=== PATIENT | female | born 1975 | race Caucasian/White ===

== ENCOUNTER 2021-02-23 10:53 | Emergency (ER) | payer SELFPAY ==
[~2021-02-23] VITALS: Ht 149.9 cm; Wt 68.5 kg
[2021-02-23 11:05] VITALS: BP 134/67
--- NOTE | 2021-02-23 11:10 | NUR ---
PT TO AWAIT IN LOBBY
--- NOTE | 2021-02-23 11:28 | NUR ---
ROCÍO GILMORE EXAMINING PT
[2021-02-23] MEDS ORDERED: KETOROLAC 30 MG/ML VIAL IM ONE (11:35)
[2021-02-23] MEDS ORDERED: NAPR-54 PO (12:16)
[2021-02-23] MEDS ORDERED: CYCL-711 PO (12:16)
[2021-02-23 12:31] VITALS: BP 134/67
--- NOTE | 2021-02-23 12:31 | NUR ---
Patient discharged with v/s stable. Written and verbal after care instructions given and explained. Patient alert, oriented and verbalized understanding of instructions. Ambulatory with steady gait. All questions addressed prior to discharge. ID band removed. Patient advised to follow up with PMD. Rx of FLEXERIL AND NAPROSYN given. Patient educated on indication of medication including possible reaction and side effects. Opportunity to ask questions provided and answered.
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
== END 2021-02-23 12:31 | disposition home or self-care (01) ==
LOC: MED 10:53
DX: S13.4XXA Sprain of ligaments of cervical spine, initial encounter (principal); Z79.899 Other long term (current) drug therapy; Z98.890 Other specified postprocedural states; V89.2XXA Person injured in unspecified motor-vehicle accident, traffic, initial encounter; Y93.89 Activity, other specified; Y92.89 Other specified places as the place of occurrence of the external cause; Y99.8 Other external cause status
CPT/HCPCS: 72050; 99283; J1885

== ENCOUNTER 2021-04-15 14:00 | Emergency (ER) | payer SELFPAY ==
[~2021-04-15 14:00] MED LIST: CYCL-711 PO; NAPR-54 PO
--- NOTE | 2021-04-15 15:30 | NUR ---
no answer in lobby or outside at this time
--- NOTE | 2021-04-15 15:40 | NUR ---
no answer in lobby or outside at this time
--- NOTE | 2021-04-15 15:43 | NUR ---
lwbs, no answer in lobby or outside at this time
== END 2021-04-15 15:46 | disposition left against medical advice (07) ==
LOC: MED 14:00
DX: M54.9 Dorsalgia, unspecified (principal); Z53.21 Procedure and treatment not carried out due to patient leaving prior to being seen by health care provider

== ENCOUNTER 2021-06-03 16:09 | Emergency (ER) | payer OTHER, SELFPAY ==
[~2021-06-03] VITALS: Ht 154.9 cm; Wt 68.9 kg
[~2021-06-03 16:09] MED LIST changes: +ACET-1182 PO; -CYCL-711 PO; +HYDR-5080 PO; -NAPR-54 PO
[2021-06-03 16:18] VITALS: BP 119/68
--- NOTE | 2021-06-03 16:25 | NUR ---
45Y/O F/O F AMBULATED TO BED 1, ABD AND RIGHT FLANK PAIN X 1 WEEK. DENIES DYSURIA. NKDA PMH: APPENDECTOMY 05/13/21, ARTHRITIS, HLD, C SECTION
[2021-06-03] MEDS ORDERED: HYDROcodone/APAP 5/325 MG 1 TAB TAB PO ONE (17:10)
[2021-06-03 17:23] LABS: BASOPHILS % (AUTO) 0.4 % (0.0-2.0); EOSINOPHILS # (AUTO) 0.3 K/uL (0-0.4); EOSINOPHILS % (AUTO) 3.7 % (0.0-4.0); HEMATOCRIT 38.2 % (36-48); LYMPHOCYTES # (AUTO) 2.5 K/uL (2.5-16.5); LYMPHOCYTES % (AUTO) 34.5 % (20.5-51.1); MEAN CORPUSCULAR HEMOGLOBIN 29 pg (27-31); MEAN CORPUSCULAR HGB CONC 34 g/dL (33-37); MEAN CORPUSCULAR VOLUME 84.8 fL (80-94); MONOCYTES # (AUTO) 0.7 K/uL (0.8-1.0); MONOCYTES % (AUTO) 8.8 % (1.7-9.3); NEUTROPHILS # (AUTO) 3.9 K/uL (1.8-7.7); NEUTROPHILS % (AUTO) 52.6 % (42.2-75.2); PLATELET COUNT (AUTO) 364 K/uL (140-450); RED BLOOD CELL COUNT(AUTO) 4.51 MIL/uL (4.20-5.40); RED CELL DISTRIBUTION WIDTH 12.7 % (11.6-13.7); WHITE BLOOD COUNT (AUTO) 7.4 K/uL (4.8-10.8)
[2021-06-03 17:44] LABS: ALBUMIN 3.1 g/dL (3.4-5.0); ANION GAP 13.9 (8-16); CARBON DIOXIDE 22.9 mmol/L (21-32); CREATININE 0.5 mg/dL (0.6-1.3); POTASSIUM 3.8 mmol/L (3.5-5.1); TOTAL BILIRUBIN 0.3 mg/dL (0.0-1.0)
--- NOTE | 2021-06-03 18:19 | NUR ---
PT TAKEN TO CT WITH HEAD MILLER
[2021-06-03] MEDS ORDERED: IBUP-2213 PO (19:17)
[2021-06-03] MEDS ORDERED: DOCU-299 PO (19:19)
--- NOTE | 2021-06-03 19:25 | NUR ---
Pt report given to [facility]. Transfer of care at this time.
[2021-06-03 20:06] VITALS: BP 145/79
--- NOTE | 2021-06-03 20:06 | NUR ---
PATIENT CLEARED FOR DISHCARGE AT THISTIME. ADVISED TO FOLLOW UP WITH PCP AND RETURN IF CODNITON WORSENS. NO OTHER COMPAINTS OR CONCERNS AT THIS TIME FOLLOWING DISHCARGE TEACHING.
== END 2021-06-03 20:06 | disposition home or self-care (01) ==
LOC: MED 16:09
DX: G89.18 Other acute postprocedural pain (principal); K42.9 Umbilical hernia without obstruction or gangrene; Z79.899 Other long term (current) drug therapy
CPT/HCPCS: 36415; 74177; 80053; 81002; 81025; 83690; 85025; 99285; Q9967

== ENCOUNTER 2022-04-10 15:54 | Emergency (ER) | payer OTHER ==
[~2022-04-10] VITALS: Ht 154.9 cm; Wt 65.8 kg
[~2022-04-10 15:54] MED LIST changes: +DOCU-299 PO; +IBUP-2213 PO
[2022-04-10 16:03] VITALS: BP 117/77
--- NOTE | 2022-04-10 16:31 | NUR ---
46/F WALKED IN C/O LEFT SIDED CHEST PRESSURE X2 MONTHS, NONRADIATING ACCOMPANIED BY NAUSEA. DENIES DIZZINESS. AAO4, AMBULATORY, VITALS STABLE. PMH: DENIES
--- NOTE | 2022-04-10 16:32 | NUR ---
EKG DONE AT TRIAGE
[2022-04-10 16:38] LABS: BASOPHILS % (AUTO) 0.3 % (0.0-2.0); EOSINOPHILS # (AUTO) 0.2 K/uL (0-0.4); EOSINOPHILS % (AUTO) 2.6 % (0.0-4.0); HEMATOCRIT 40.7 % (36-48); HEMOGLOBIN 13.8 g/dL (12.0-16.0); LYMPHOCYTES # (AUTO) 2.1 K/uL (2.5-16.5); LYMPHOCYTES % (AUTO) 31.4 % (20.5-51.1); MEAN CORPUSCULAR HEMOGLOBIN 29 pg (27-31); MEAN CORPUSCULAR HGB CONC 34 g/dL (33-37); MEAN CORPUSCULAR VOLUME 84.7 fL (80-94); MONOCYTES # (AUTO) 0.3 K/uL (0.8-1.0); MONOCYTES % (AUTO) 4.8 % (1.7-9.3); NEUTROPHILS % (AUTO) 60.9 % (42.2-75.2); PLATELET COUNT (AUTO) 368 K/uL (140-450); RED BLOOD CELL COUNT(AUTO) 4.81 MIL/uL (4.20-5.40); RED CELL DISTRIBUTION WIDTH 13.1 % (11.6-13.7); WHITE BLOOD COUNT (AUTO) 6.6 K/uL (4.8-10.8)
[2022-04-10 16:59] LABS: ALBUMIN 3.7 g/dL (3.4-5.0); ANION GAP 12.3 (8-16); ASPARTATE AMINOTRANSFERASE 14 U/L (15-37); CARBON DIOXIDE 27.4 mmol/L (21-32); CHLORIDE 104 mmol/L (98-107); CREATININE 0.6 mg/dL (0.6-1.3); GFR ARICAN-AMERICAN 137 mL/min (>90); GLUCOSE 109 mg/dL (74-106); POTASSIUM 3.7 mmol/L (3.5-5.1); SODIUM SERUM 140 mmol/L (136-145); TOTAL BILIRUBIN 0.8 mg/dL (0.0-1.0); UREA NITROGEN, BLOOD 11 mg/dL (7-18)
[2022-04-10] MEDS ORDERED: FAMOTIDINE 20 MG TAB PO ONE (17:20)
[2022-04-10] MEDS ORDERED: ONDANSETRON 4 MG ODT PO ONE (17:20)
[2022-04-10] MEDS ORDERED: ALUMINUM HYD/MAG/SIMETHICONE 30 ML UDC PO ONE (17:20)
[2022-04-10] MEDS ORDERED: SUCR1TAB6 PO (17:51)
[2022-04-10] MEDS ORDERED: OMEP40EC23 PO (17:51)
--- NOTE | 2022-04-10 18:07 | NUR ---
Patient discharged with v/s stable. Written and verbal after care instructions given and explained. Patient alert, oriented and verbalized understanding of instructions. Ambulatory with steady gait. All questions addressed prior to discharge. ID band removed. Patient advised to follow up with PMD. Rx of PRILOSEC given. Patient educated on indication of medication including possible reaction and side effects. Opportunity to ask questions provided and answered.
== END 2022-04-10 18:07 | disposition home or self-care (01) ==
LOC: MED 15:54
DX: K20.90 Esophagitis, unspecified without bleeding (principal); R07.9 Chest pain, unspecified; K44.9 Diaphragmatic hernia without obstruction or gangrene; R11.2 Nausea with vomiting, unspecified; Z79.899 Other long term (current) drug therapy; Z98.890 Other specified postprocedural states
CPT/HCPCS: 36415; 71045; 80053; 84484; 85025; 93005; 99285; Q0162

== ENCOUNTER 2022-11-24 13:20 | Emergency (ER) | payer OTHER ==
[~2022-11-24] VITALS: Ht 154.9 cm; Wt 55.3 kg
[~2022-11-24 13:20] MED LIST changes: +OMEP40EC23 PO; +SUCR1TAB6 PO
[2022-11-24 13:35] VITALS: BP 111/81; PULSE 68; RESP 20; TEMP 98; O2SAT 99
[2022-11-24 14:28] VITALS: O2SAT 99
[2022-11-24 14:37] LABS: BASOPHILS % (AUTO) 0.3 % (0.0-2.0); EOSINOPHILS # (AUTO) 0.2 K/uL (0-0.4); EOSINOPHILS % (AUTO) 3.9 % (0.0-4.0); HEMOGLOBIN 13.5 g/dL (12.0-16.0); LYMPHOCYTES # (AUTO) 2.9 K/uL (2.5-16.5); LYMPHOCYTES % (AUTO) 47.1 % (20.5-51.1); MEAN CORPUSCULAR HEMOGLOBIN 29 pg (27-31); MEAN CORPUSCULAR HGB CONC 34 g/dL (33-37); MEAN CORPUSCULAR VOLUME 86.7 fL (80-94); MONOCYTES # (AUTO) 0.5 K/uL (0.8-1.0); MONOCYTES % (AUTO) 7.8 % (1.7-9.3); NEUTROPHILS # (AUTO) 2.5 K/uL (1.8-7.7); NEUTROPHILS % (AUTO) 40.9 % (42.2-75.2); PLATELET COUNT (AUTO) 310 K/uL (140-450); RED BLOOD CELL COUNT(AUTO) 4.61 MIL/uL (4.20-5.40); RED CELL DISTRIBUTION WIDTH 12.9 % (11.6-13.7); WHITE BLOOD COUNT (AUTO) 6.1 K/uL (4.8-10.8)
[2022-11-24] MEDS ORDERED: KETOROLAC 60 MG/2 ML VIAL IM ONE (14:40)
[2022-11-24] MEDS ORDERED: ONDANSETRON 4 MG ODT PO ONE (14:45)
[2022-11-24 15:01] LABS: ALBUMIN 3.6 g/dL (3.4-5.0); ANION GAP 9.9 (8-16); CALCIUM 8.5 mg/dL (8.5-10.1); CARBON DIOXIDE 28.9 mmol/L (21-32); CREATININE 0.7 mg/dL (0.6-1.3); POTASSIUM 3.8 mmol/L (3.5-5.1); TOTAL BILIRUBIN 0.5 mg/dL (0.0-1.0); TOTAL PROTEIN, SERUM 7.6 g/dL (6.4-8.2)
[2022-11-24 15:15] LABS: APPEARANCE,URINE CLEAR (CLEAR); BILIRUBIN,URINE NEGATIVE (NEGATIVE); BLOOD, URINE 2+ (NEGATIVE); COLOR,URINE YELLOW (YELLOW); LEUKOCYTE ESTERASE ,URINE NEGATIVE (NEGATIVE); NITRITE, URINE NEGATIVE (NEGATIVE); PROTEIN,URINE NEGATIVE (NEGATIVE); UGLUCOSE NEGATIVE (NEGATIVE); UROBILINOGEN,URINE 0.2 EU/dL (0.2 - 1)
[2022-11-24 15:32] LABS: BACTERIA,URINE FEW /HPF (None Seen); SQUAMOUS EPITHELIAL CELL,UR 20-50 /LPF (0-3 (FEW)); WBC,URINE 0-5 /HPF (0-5)
[2022-11-24] MEDS ORDERED: OMEP40EC24 PO (16:16)
[2022-11-24] MEDS ORDERED: ONDA8TAB87 PO (16:16)
[2022-11-24] MEDS ORDERED: IBUP-2213 PO (16:16)
[2022-11-24 16:23] VITALS: BP 110/81; PULSE 70; RESP 20; TEMP 98; O2SAT 99
== END 2022-11-24 16:23 | disposition home or self-care (01) ==
LOC: MED 13:20
DX: R10.13 Epigastric pain (principal); R11.2 Nausea with vomiting, unspecified; Z79.899 Other long term (current) drug therapy; Z90.49 Acquired absence of other specified parts of digestive tract
CPT/HCPCS: 36415; 80053; 81001; 81025; 82150; 83690; 85025; 96372; 99283; J1885; Q0162

== ENCOUNTER 2023-03-10 23:28 | Emergency (ER) | payer OTHER ==
[~2023-03-10] VITALS: Ht 157.5 cm; Wt 50.3 kg
[~2023-03-10 23:28] MED LIST changes: +OMEP40EC24 PO; +ONDA8TAB87 PO
[2023-03-10 23:40] VITALS: BP 126/78; PULSE 67; RESP 17; TEMP 97.9; O2SAT 100
[2023-03-10] MEDS ORDERED: ONDANSETRON 4 MG ODT PO ONE (23:50)
[2023-03-10] MEDS ORDERED: ACETAMINOPHEN EXTRA STRENGTH 500 MG TAB PO ONE (23:50)
[2023-03-10] MEDS ORDERED: DICYCLOMINE HCL LIQUID 20 MG, ALUMINUM HYD/MAG/SIMETHICONE 30 ML, LIDOCAINE VISCOUS 2% ... PO ONE ×3 (23:50)
[2023-03-10] MEDS ORDERED: ALUMINUM HYD/MAG/SIMETHICONE 30 ML UDC ONE (23:55)
[2023-03-10] MEDS ORDERED: DICYCLOMINE HCL LIQUID 10 MG/5 ML UDC ONE (23:55)
[2023-03-11 00:02] LABS: BASOPHILS # (AUTO) 0.1 K/uL (0.00-0.22); BASOPHILS % (AUTO) 0.9 % (0.0-2.0); EOSINOPHILS # (AUTO) 0.2 K/uL (0-0.4); EOSINOPHILS % (AUTO) 2.3 % (0.0-4.0); HEMATOCRIT 37.9 % (36-48); HEMOGLOBIN 13.1 g/dL (12.0-16.0); LYMPHOCYTES # (AUTO) 5.5 K/uL (2.5-16.5); LYMPHOCYTES % (AUTO) 63.8 % (20.5-51.1); MEAN CORPUSCULAR HEMOGLOBIN 30 pg (27-31); MEAN CORPUSCULAR HGB CONC 35 g/dL (33-37); MONOCYTES # (AUTO) 0.8 K/uL (0.8-1.0); MONOCYTES % (AUTO) 9.5 % (1.7-9.3); NEUTROPHILS % (AUTO) 23.5 % (42.2-75.2); PLATELET COUNT (AUTO) 282 K/uL (140-450); RED BLOOD CELL COUNT(AUTO) 4.36 MIL/uL (4.20-5.40); RED CELL DISTRIBUTION WIDTH 13.4 % (11.6-13.7); WHITE BLOOD COUNT (AUTO) 8.7 K/uL (4.8-10.8)
[2023-03-11 00:21] LABS: ALBUMIN 3.6 g/dL (3.4-5.0); ANION GAP 10.8 (8-16); CALCIUM 9.2 mg/dL (8.5-10.1); CREATININE 0.6 mg/dL (0.6-1.3); POTASSIUM 3.8 mmol/L (3.5-5.1); TOTAL BILIRUBIN 0.5 mg/dL (0.0-1.0); TOTAL PROTEIN, SERUM 7.7 g/dL (6.4-8.2)
[2023-03-11] MEDS ORDERED: FAMO-90 PO (04:08)
[2023-03-11] MEDS ORDERED: ACET-10509 PO (04:08)
[2023-03-11] MEDS ORDERED: MAG355OR2 PO (04:08)
[2023-03-11] MEDS ORDERED: DOCU-299 PO (04:08)
[2023-03-11] MEDS ORDERED: ONDA-188 PO (04:08)
[2023-03-11 04:38] VITALS: BP 118/72; PULSE 68; RESP 17; TEMP 97.9; O2SAT 100
== END 2023-03-11 04:38 | disposition home or self-care (01) ==
LOC: MED 23:28
DX: K56.7 Ileus, unspecified (principal); Z79.899 Other long term (current) drug therapy
CPT/HCPCS: 36415; 74177; 80053; 81002; 81025; 83690; 85025; 99285; Q0162; Q9967

== ENCOUNTER 2023-06-22 05:20 | Emergency (ER) | payer OTHER ==
[~2023-06-22] VITALS: Ht 157.5 cm; Wt 50.8 kg
[~2023-06-22 05:20] MED LIST changes: +ACET-10509 PO; +FAMO-90 PO; +MAG355OR2 PO; +ONDA-188 PO
[2023-06-22 05:26] VITALS: BP 108/66; PULSE 92; RESP 17; TEMP 97.8; O2SAT 100
[2023-06-22] MEDS: MORPHINE SULFATE 2 MG/ML SYR IVP ONE (06:55)
[2023-06-22] MEDS: ONDANSETRON 4 MG/2 ML VIAL IVP ONE (06:56)
[2023-06-22] MEDS: FAMOTIDINE 20 MG/2 ML VIAL IVP ONE (06:56)
[2023-06-22 06:57] LABS: BASOPHILS % (AUTO) 0.2 % (0.0-2.0); EOSINOPHILS # (AUTO) 0.1 K/uL (0-0.4); EOSINOPHILS % (AUTO) 1.6 % (0.0-4.0); HEMOGLOBIN 15.6 g/dL (12.0-16.0); LYMPHOCYTES # (AUTO) 0.4 K/uL (2.5-16.5); LYMPHOCYTES % (AUTO) 4.9 % (20.5-51.1); MEAN CORPUSCULAR HEMOGLOBIN 30 pg (27-31); MEAN CORPUSCULAR HGB CONC 35 g/dL (33-37); MEAN CORPUSCULAR VOLUME 86.7 fL (80-94); MONOCYTES # (AUTO) 0.2 K/uL (0.8-1.0); MONOCYTES % (AUTO) 2.3 % (1.7-9.3); PLATELET COUNT (AUTO) 278 K/uL (140-450); RED CELL DISTRIBUTION WIDTH 13.1 % (11.6-13.7); WHITE BLOOD COUNT (AUTO) 8.8 K/uL (4.8-10.8)
[2023-06-22] MEDS: NACL 0.9% 1,000 ML IV SCH (06:57)
[2023-06-22 07:06] LABS: ANION GAP 12.6 (8-16); CALCIUM 8.5 mg/dL (8.5-10.1); CARBON DIOXIDE 25.8 mmol/L (21-32); CREATININE 0.6 mg/dL (0.6-1.3); POTASSIUM 4.4 mmol/L (3.5-5.1)
[2023-06-22 07:15] LABS: ALBUMIN 4.2 g/dL (3.4-5.0); BILIRUBIN,DIRECT 0.2 mg/dL (0.0-0.3); TOTAL PROTEIN, SERUM 8.4 g/dL (6.4-8.2)
[2023-06-22 07:27] VITALS: TEMP 98
[2023-06-22] MEDS ORDERED: FAMO-92 PO (09:59)
[2023-06-22] MEDS ORDERED: LOPE-289 PO (09:59)
[2023-06-22] MEDS ORDERED: TRAM-748 PO (10:00)
[2023-06-22 10:21] VITALS: BP 96/55; PULSE 98; RESP 20; O2SAT 97
== END 2023-06-22 10:21 | disposition home or self-care (01) ==
LOC: MED 05:20
DX: K85.90 Acute pancreatitis without necrosis or infection, unspecified (principal); K29.70 Gastritis, unspecified, without bleeding; E78.5 Hyperlipidemia, unspecified; R03.0 Elevated blood-pressure reading, without diagnosis of hypertension; Z90.49 Acquired absence of other specified parts of digestive tract; Z79.1 Long term (current) use of non-steroidal anti-inflammatories (NSAID); Z79.899 Other long term (current) drug therapy
CPT/HCPCS: 36415; 76705; 80048; 80076; 81002; 83690; 84703; 85025; 93005; 96361; 96374; 96375; 99285; J2270; J2405; J3490; J7030; Q0092; 99284